=== PATIENT | male | born 1990 | race Caucasian/White ===

== ENCOUNTER 2016-11-29 21:49 | Emergency (ER) | payer OTHER, SELFPAY ==
[2016-11-29] MEDS ORDERED: Morphine Sulfate 2 MG/ML SYRINGE ONE ×2 (22:07→23:40)
[2016-11-29 22:17] LABS: PTT 25.6 SEC (22.9-36.1); Prothrombin Time 13.9 SEC (12.0-14.7)
[2016-11-29 22:18] LABS: #Basophils 0.1 thou/uL (0.0-0.2); #Eosinphils 0.1 thou/uL (0.0-0.7); #Monocytes 1.1 thou/uL (0.11-0.59); %Basophils 1.5 % (0.0-1.0); %Lymphocytes 32.3 % (21.0-51.0); %Monocytes 11.5 % (0.0-10.0); Hematocrit 50.9 % (42.0-52.0); Mean Platelet Volume 8.9 fL (7.4-10.4); Red Blood Cell (RBC) Count 6.05 mill/uL (4.70-6.10); White Blood Cell (WBC) Count 9.3 thou/uL (4.8-10.8)
[2016-11-29 22:45] LABS: ALT (SGPT) 24 U/L (8-55); AST (SGOT) 17 U/L (5-34); Alkaline Phosphatase 58 U/L (40-150); Anion Gap 18 mmol/L (10-20); BUN (Urea Nitrogen) 12 mg/dL (8.9-20.6); Calc. Creatinine Clearance 0 mL/min (70-130); Calcium 9.9 mg/dL (7.8-10.44); Carbon Dioxide 21 mmol/L (22-29); Chloride 107 mmol/L (98-107); Estimated GFR-MDRD 54; Globulin 3.2 g/dL (2.4-3.5); Lipase 5 U/L (8-78); Protein, Total 7.8 g/dL (6.0-8.3)
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
[2016-11-29] MEDS ORDERED: Adacel (T-DAP) 0.5 ML VIAL ONE (23:26)
[2016-11-29] MEDS ORDERED: Lidocaine 2% Jelly 5 ML TUBE ONE (23:27)
[2016-11-29] MEDS ORDERED: Bacitracin Zinc Ointment 30 gm TUBE ONE (23:28)
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
[2016-11-29] MEDS ORDERED: Ketorolac Tromethamine 30 MG/ML VIAL ONE (23:41)
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
== END 2016-11-30 | disposition home or self-care (01) ==
LOC: SCSER 21:49
DX: S82.832A Other fracture of upper and lower end of left fibula, initial encounter for closed fracture (principal); S30.810A Abrasion of lower back and pelvis, initial encounter; S80.212A Abrasion, left knee, initial encounter; V29.9XXA Motorcycle rider (driver) (passenger) injured in unspecified traffic accident, initial encounter
CPT/HCPCS: 70450; 71260; 72125; 74177; 80053; 80307; 83690; 85025; 85610; 85730; 86850; 86900; 86901; 90471; 90715; 96374; 96375; 96376; J1885; J2270